=== PATIENT | female | born 1980 | race American Indian/Alaskan Native ===

== ENCOUNTER 2020-02-07 21:31 | Emergency (ER) | payer BC ==
[2020-02-07 22:13] LABS: Hematocrit 38.1 % (30.3-42.9); Hemoglobin 12.8 gm/dl (10.1-14.3); Mean Corpuscular HGB Conc 34 % (30-34); Mean Corpuscular Volume 82 fl (79-97); Platelet Count 283 K/mm3 (140-440); Red Blood Count 4.62 M/mm3 (3.65-5.03); Red Cell Distribution Width 12.7 % (13.2-15.2)
[2020-02-07 22:21] LABS: Blood Urea Nitrogen 5 mg/dL (7-17); Calcium 8.8 mg/dL (8.4-10.2); Hemolysis Index 4
[2020-02-07 22:25] LABS: BUN/Creatinine Ratio 8
[2020-02-07 22:51] LABS: Basophils % (Manual) 0 % (0.0-1.8); Eosinophils % (Manual) 0 % (0.0-4.3); Total Cells Counted 100
[2020-02-07 22:52] LABS: Anisocytosis Few; Platelet Estimate Consistent w Auto
[2020-02-07 23:38] LABS: Bilirubin,Urine NEG (Negative); Blood,Urine NEG (Negative); Color,Urine Straw (Yellow); Mucus,Urine FEW /HPF; Protein,Urine <15 mg/dL mg/dL (Negative); Urobilinogen,Urine < 2.0 mg/dL (<2.0)
[2020-02-07] MEDS ORDERED: SODIUM CHLORIDE 0.9% 1000 ML 1,000 ML IV ONE (23:39)
[2020-02-07] MEDS ORDERED: INSULIN REGULAR, HUMAN 100 UNIT/ML 3ML VIAL IV ONE ×2 (23:39→23:41)
--- NOTE | 2020-02-07 23:39 | Emergency Department Report ---
ED General Adult HPI - General Chief complaint: Hyperglycemia Stated complaint: DIZZINESS/BLURRED VISION/HEADACHE PUI?: No Time Seen by Provider: 02/07/20 23:33 Source: patient Mode of arrival: Ambulatory Limitations: No Limitations - History of Present Illness Initial comments: Patient is a 39-year-old female that presents emergency room with complaints of increased urination, headache, blurry vision and fatigue. Patient states she is also having a yeast infection. Patient denies dysuria. Patient states she feels like her sugar is up. Patient states she was tested 1 year ago for diabetes and she was borderline. Patient states that she is been eating more and gaining weight recently. Patient states her headache is a 9 out of 10. Patient denies fever and chills. Patient states her headache is better with rest and worse with movement. Patient denies neck stiffness. Patient states her symptoms are better when she rests and drinks water. Patient denies recent travel. Patient denies recent international travel. Patient denies exposure to the novel coronavirus. Patient denies sick contacts. Patient denies fever and chills. Patient denies cough. Patient denies diarrhea. Patient denies coming in contact with anybody with symptoms of the novel coronavirus. -: Sudden Location: head Severity scale (0 -10): 9 Quality: aching Consistency: constant Improves with: rest Worsens with: movement Associated Symptoms: headaches, malaise. denies: confusion, chest pain, cough, diaphoresis, fever/chills, nausea/vomiting, rash, seizure, shortness of breath, syncope Treatments Prior to Arrival: none - Related Data Previous Rx's Medication Instructions Recorded Last Taken Type Cinnamon Bark [Cinnamon] 500 mg PO BID 30 Days #60 capsule 02/07/20 Unknown Rx Fluconazole (Nf) [Diflucan TAB] 150 mg PO ONCE 1 Days #1 tablet 02/07/20 Unknown Rx metFORMIN [Glucophage] 500 mg PO BID 30 Days #60 tablet 02/07/20 Unknown Rx Allergies Allergy/AdvReac Type Severity Reaction Status Date / Time No Known Allergies Allergy Unverified 02/07/20 21:49 ED Review of Systems ROS: Stated complaint: DIZZINESS/BLURRED VISION/HEADACHE Other details as noted in HPI Constitutional: malaise. denies: chills, fever Eyes: denies: eye pain, eye discharge, vision change ENT: denies: ear pain, throat pain Respiratory: denies: cough, shortness of breath, wheezing Cardiovascular: denies: chest pain, palpitations Endocrine: no symptoms reported, increased thirst, increased urine Gastrointestinal: vomiting. denies: abdominal pain, nausea, diarrhea Genitourinary: frequency, discharge. denies: urgency, dysuria Musculoskeletal: denies: back pain, joint swelling, arthralgia Skin: denies: rash, lesions Neurological: as per HPI, headache. denies: weakness, paresthesias Psychiatric: denies: anxiety, depression Hematological/Lymphatic: denies: easy bleeding, easy bruising ED Past Medical Hx - Past Medical History Previous Medical History?: Yes Hx Diabetes: Yes (Borderline) - Surgical History Past Surgical History?: Yes Hx Cholecystectomy: Yes Additional Surgical History: Hysterectomy - Family History Family history: no significant - Social History Smoking Status: Never Smoker Substance Use Type: None - Medications Home Medications: Home Medications Medication Instructions Recorded Confirmed Last Taken Type Cinnamon Bark [Cinnamon] 500 mg PO BID 30 Days #60 capsule 02/07/20 Unknown Rx Fluconazole (Nf) [Diflucan TAB] 150 mg PO ONCE 1 Days #1 tablet 02/07/20 Unknown Rx metFORMIN [Glucophage] 500 mg PO BID 30 Days #60 tablet 02/07/20 Unknown Rx ED Physical Exam - General Limitations: No Limitations General appearance: alert, in no apparent distress - Head Head exam: Present: atraumatic, normocephalic - Eye Eye exam: Present: normal appearance - ENT ENT exam: Present: mucous membranes moist - Neck Neck exam: Present: normal inspection - Respiratory Respiratory exam: Present: normal lung sounds bilaterally. Absent: respiratory distress - Cardiovascular Cardiovascular Exam: Present: regular rate, normal rhythm. Absent: systolic murmur, diastolic murmur, rubs, gallop - GI/Abdominal GI/Abdominal exam: Present: soft, normal bowel sounds. Absent: distended, tenderness, guarding - Rectal Rectal exam: Present: deferred - Extremities Exam Extremities exam: Present: normal inspection - Back Exam Back exam: Present: normal inspection - Neurological Exam Neurological exam: Present: alert, oriented X3 - Psychiatric Psychiatric exam: Present: normal affect, normal mood - Skin Skin exam: Present: warm, dry, intact, normal color. Absent: rash ED Course Vital Signs 02/07/20 02/07/20 02/07/20 21:37 21:40 23:52 Temperature 98.2 F 98.2 F Pulse Rate 88 88 78 Respiratory 16 16 19 Rate Blood Pressure 147/90 Blood Pressure 147/90 139/98 [Right] O2 Sat by Pulse 98 987 H 98 Oximetry - Reevaluation(s) Reevaluation #1: I discussed at length with the patient the clinical findings and the labs. I discussed at length with patient the importance of taking care of her sugar and her diabetes. I also discussed with the patient diet and the importance of weight loss and exercise. I also discussed with the patient the importance to follow-up with the primary care. I spent 25 minutes with the patient discussing new onset diabetes. I discussed plan of care with patient. Patient agrees with current plan of care. 02/08/20 00:01 Reevaluation #2: Patient states she is feeling much better. Patient states her symptoms have improved. Patient states her blurry vision has resolved. Patient states her headache has resolved. Patient denies chest pain or shortness of breath. I discussed all results and clinical findings with patient. I discussed plan of care with patient. Patient agrees with plan of care. Patient is stable for discharge. Patient will be discharged home. Patient given discharge instructions. Patient voiced understanding of discharge instructions. 02/08/20 01:17 ED Medical Decision Making - Lab Data Result diagrams: 02/07/20 21:51 02/07/20 21:51 - Medical Decision Making Patient is a 39-year-old female that presents emergency room with multiple complaints. Patient's complaints include urinary frequency, yeast infection, blurry vision, headache, fatigue. Patient given fluids and insulin and her symptoms improved. Patient left essentially asymptomatic except for urinary frequency. Patient's blood sugar improved with insulin. Patient was given 6 units of insulin and a liter of fluids. Patient clinical findings are consistent with uncontrolled type 2 diabetes. Patient will be started on cinnamon supplement and metformin. Patient also given Diflucan for a candidiasis. Patient's labs are essentially unremarkable except for hyperglycemia. Patient's urine shows glucose in her urine. Patient stable for discharge. Patient given discharge instructions. - Differential Diagnosis Hyperglycemia, uncontrolled diabetes, urinary frequency, dizziness, dehydra Critical care attestation.: If time is entered above; I have spent that time in minutes in the direct care of this critically ill patient, excluding procedure time. ED Disposition Clinical Impression: Blurry vision, Hyperglycemia, Candidiasis, vagina, Urinary frequency, Glucosuria Headache Qualifiers: Headache type: unspecified Headache chronicity pattern: acute headache Intractability: not intractable Qualified Code(s): R51 - Headache Fatigue Qualifiers: Fatigue type: unspecified Qualified Code(s): R53.83 - Other fatigue DM w/o complication type II, uncontrolled Qualifiers: Glycemic state: with hyperglycemia Qualified Code(s): E11.65 - Type 2 diabetes mellitus with hyperglycemia Disposition: TO HOME OR SELFCARE Is pt being admited?: No Does the pt Need Aspirin: No Condition: Stable Instructions: Diabetes Mellitus Type 2 in Adults (ED), Vulvovaginal Candidiasis (ED), Acute Headache (ED), Fatigue (ED) Additional Instructions: Patient to follow-up with primary care in 2 to 3 days. Patient to follow-up with art historian in 2 to 3 days. Patient to rest. Patient to increase water. Patient to eat a heart healthy, diabetic diet. Patient to monitor blood sugar and take blood sugar log to follow-up appointments.. Patient to take Tylenol or ibuprofen as needed for pain. Patient to take meds as directed. Patient to return to the ER if condition worsens, changes or new symptoms arise. Prescriptions: Cinnamon Bark [Cinnamon] 500 mg PO BID 30 Days #60 capsule Fluconazole (Nf) [Diflucan TAB] 150 mg PO ONCE 1 Days #1 tablet metFORMIN [Glucophage] 500 mg PO BID 30 Days #60 tablet Referrals: PRIMARY MD SY [Primary Care Provider] - 2-3 Days CARON VERA MD [Staff Physician] - 2-3 Days JOSE ALANIZ MD [Staff Physician] - 2-3 Days Time of Disposition: 01:32
[2020-02-07] MEDS ORDERED: INSULIN REGULAR, HUMAN 100 UNITS/1 ML ONE (23:45)
[2020-02-07 23:53] VITALS: BP 139/98
== END 2020-02-08 01:35 | disposition home or self-care (01) ==
LOC: ED 21:31
DX: E11.65 Type 2 diabetes mellitus with hyperglycemia (principal); B37.3 Candidiasis of vulva and vagina; R81 Glycosuria; R35.0 Frequency of micturition; H53.8 Other visual disturbances; R53.83 Other fatigue; R51 Headache; Z90.710 Acquired absence of both cervix and uterus; Z90.49 Acquired absence of other specified parts of digestive tract; Z79.84 Long term (current) use of oral hypoglycemic drugs; Z79.899 Other long term (current) drug therapy
CPT/HCPCS: 36415; 80048; 81001; 82962; 85007; 85025; 96361; 96374; 99283; J7030; J1815

== ENCOUNTER 2020-02-21 11:16 | Outpatient (CLI) | payer BC ==
[2020-02-21 11:52] LABS: Basophils # (Auto) 0.1 K/mm3 (0.0-0.1); Basophils % (Auto) 1.1 % (0.0-1.8); Eosinophils # (Auto) 0.2 K/mm3 (0.0-0.4); Eosinophils % (Auto) 3.1 % (0.0-4.3); Hematocrit 38.3 % (30.3-42.9); Hemoglobin 12.6 gm/dl (10.1-14.3); Lymphocytes # (Auto) 2.8 K/mm3 (1.2-5.4); Lymphocytes % (Auto) 43.1 % (13.4-35.0); Mean Corpuscular HGB Conc 33 % (30-34); Mean Corpuscular Volume 83 fl (79-97); Monocytes # (Auto) 0.6 K/mm3 (0.0-0.8); Monocytes % (Auto) 8.6 % (0.0-7.3); Platelet Count 287 K/mm3 (140-440); Red Blood Count 4.61 M/mm3 (3.65-5.03)
[2020-02-21 12:11] LABS: Alanine Aminotransferase 12 units/L (7-56); Albumin 3.8 g/dL (3.9-5); Blood Urea Nitrogen 6 mg/dL (7-17); Calcium 8.8 mg/dL (8.4-10.2); Chol/HDL Ratio 3.02 %; HDL Cholesterol 50 mg/dL (40-59); Hemolysis Index 6; LDL Cholesterol,Direct 100 mg/dL (50-130)
[2020-02-21 12:25] LABS: BUN/Creatinine Ratio 10
== END 2020-02-21 11:17 | disposition home or self-care (01) ==
LOC: LAB 11:16
PROVIDERS: ATTEND Internal Medicine
DX: Z00.00 Encounter for general adult medical examination without abnormal findings (principal); E11.65 Type 2 diabetes mellitus with hyperglycemia; Z13.220 Encounter for screening for lipoid disorders; Z13.29 Encounter for screening for other suspected endocrine disorder; E56.9 Vitamin deficiency, unspecified
CPT/HCPCS: 36415; 80053; 80061; 82306; 82607; 83036; 84443; 85025